=== PATIENT | female | born 2000 | race Two or more races ===

== ENCOUNTER → 2024-12-07 | Emergency (ER) | payer OTHER ==
[~2024-12-07] VITALS: Ht 165.1 cm; Wt 83.9 kg
[~2024-12-07] MED LIST: CEFTRIAXONE SODIUM 1,000 MG VIAL IM ONE; CEFTRIAXONE SODIUM 1,000 MG VIAL ONE; KETOROLAC TROMETHAMINE 60 MG VIAL IM ONE
== END | disposition home or self-care (01) ==
LOC: ER 09:55
DX: R53.81 Other malaise (principal); H66.90 Otitis media, unspecified, unspecified ear